=== PATIENT | male | born 1940 | race Two or more races ===

== ENCOUNTER 2020-02-04 09:18 | Day surgery (SDC) | payer OTHER ==
[2020-01-29 11:04] VITALS: BMI 31.7
[2020-02-04] MEDS ORDERED: OFLOXACIN 0.3% OPHTHALMIC SOLUTION 5 ML BOTTLE ONE (10:10)
[2020-02-04] MEDS ORDERED: CYCLOPENTOLATE HCL 1% OPHTH SOLN 2 ML BOTTLE ONE (10:10)
[2020-02-04] MEDS ORDERED: KETOROLAC TROMETHAMINE 0.5% EYE DROP 1 DROP DROPS ONE (10:11)
[2020-02-04] MEDS ORDERED: PHENYLEPHRINE 2.5% OPHTH SOLN 15 ML BOTTLE ONE (10:11)
[2020-02-04] MEDS ORDERED: TROPICAMIDE 1% OPHTH SOLN 15 ML BOTTLE ONE (10:11)
[2020-02-04] MEDS: KETOROLAC TROMETHAMINE 0.5% EYE DROP 1 DROP DROPS OD SCH ×5 (10:25→10:45)
[2020-02-04] MEDS: PHENYLEPHRINE 2.5% OPHTH SOLN 15 ML BOTTLE OD SCH ×5 (10:25→10:45)
[2020-02-04] MEDS: TROPICAMIDE 1% OPHTH SOLN 15 ML BOTTLE OD SCH ×5 (10:25→10:45)
[2020-02-04] MEDS: OFLOXACIN 0.3% OPHTHALMIC SOLUTION 5 ML BOTTLE OD SCH ×5 (10:25→10:45)
[2020-02-04] MEDS: CYCLOPENTOLATE HCL 1% OPHTH SOLN 2 ML BOTTLE OD SCH ×5 (10:25→10:45)
[2020-02-04] MEDS ORDERED: BACITRACIN/POLYMYXIN OPH OINT 3.5 GM TUBE ONE (11:32)
[2020-02-04] MEDS ORDERED: BETAXOLOL HCL 0.25% OPHTHALMIC 10 ML DROPSBTL ONE (11:32)
[2020-02-04] MEDS ORDERED: POVIDONE-IODINE 5% OPHTHALMIC PREP 30 ML SOLUTION ONE (11:32)
[2020-02-04] MEDS ORDERED: EPI-SHUGARCAINE (EPINEPHRINE 0.025% & LIDOCAINE-PF 0.75%) 4ML ONE (11:32)
[2020-02-04] MEDS ORDERED: NEO/POLYMYX B SULF/DEXAMETH OPHTHALMIC 5ML BOTTLE ONE (11:33)
[2020-02-04] MEDS ORDERED: MIDAZOLAM HCL 2 MG/2 ML SINGLE DOSE VIAL ONE (11:39)
[2020-02-04] MEDS ORDERED: ISOSULFAN BLUE 10 MG/ML VIAL SQ ONE (12:08)
[2020-02-04] MEDS ORDERED: ACETAMINOPHEN 325 MG TABLET (FP) PO PRN (13:00)
[2020-02-04 13:39] VITALS: TEMP 98.3
[2020-02-04 13:43] VITALS: BP 122/77; PULSE 48
--- NOTE | 2020-02-04 19:23 | OP ---
DATE OF OPERATION: 02/04/2020 PREOPERATIVE DIAGNOSIS: Cataract, right eye. POSTOPERATIVE DIAGNOSIS: Cataract, right eye. PROCEDURE: Cataract extraction via phacoemulsification with insertion of posterior chamber lens implant, right eye. SURGEON: Maikel Abraham MD. SLICING MACHINE OPERATOR: Sofie Jimenez MD. ANESTHESIA: Topical with sedation. ESTIMATED BLOOD LOSS: Less than 1 mL. COMPLICATIONS: None. SPECIMENS: None. PROCEDURE: The patient is identified in the holding area. After all risks, benefits, and alternatives were explained to the patient, informed consent was obtained. The right eye was marked with a marking pen. The patient then entered the operating room on an eye stretcher. After formal timeout was performed, topical tetracaine eyedrops were instilled onto the right eye. The right eye was then prepped and draped in the usual sterile fashion. Eyelid speculum was placed beneath the eyelids of the right eye. A supratemporal paracentesis incision was created using 15 degree blade. Topical preservative-free epinephrine and preservative-free lidocaine was then injected into the anterior chamber, air bubbles then into the anterior chamber. Trypan blue was then used to stain the anterior capsule. Then viscoelastic was used to evacuate all air bubble and excess Trypan blue from the eye. A 2.4-mm keratome blade was then used to make an infratemporal incision. A 360-degree continuous curvilinear capsulorrhexis was then created using bent cystotome and Utrata forceps. Hydrodissection was performed using balanced saline solution on the cannula. Phacoemulsification was then introduced, disassembled and removed the nucleus in its entirety. Irrigation/aspiration was then used to remove any remaining cortical material from the eye. The capsular bag was reformed using viscoelastic. An Daniele model SN683 with a power of 21.0 diopters, serial number [id number] was inspected and found to be defect free and injected into the capsular bag. Irrigation/aspiration was then used to remove any remaining viscoelastic from the eye including . The intraocular lens was rotated so that the axis of astigmatism on the optic matched the axis of astigmatism on the cornea, which was noted to be 10 degrees. Once the intraocular lens was rotated appropriately, all wounds were hydrated with balanced salt solution and noted to be watertight. There was a red reflex present. The anterior chamber was deep. The lens was perfectly centered in the capsular bag with the axis of astigmatism at 10 degrees, and the eye had adequate pressure. Topical antibiotic eyedrops and antibiotic ointment was then administered to the right eye. The eyelid speculum was then removed from the right eye. The right eye was shielded. The patient tolerated the procedure well and right the operating room in stable condition to follow up in the eye clinic the next morning at 10 o'clock. ADDENDUM: Before the right eye was prepped and draped in the usual sterile fashion, the patient was asked to sit up and look straight ahead, and the cardinal axes of astigmatism were marked using a Toric marking pen and a Toric marker. Then the patient was instructed to lay back down and the right eye again was prepped and draped in the usual sterile fashion. Then, following that step, the cornea was marked for the axis of astigmatism using a Toric dial and Toric marking pen; again, the axis of astigmatism was noted to be 10 degrees. MAIKEL ABRAHAM M.D. [id number]
== END 2020-02-04 14:05 | disposition home or self-care (01) ==
LOC: FASU 09:18
PROVIDERS: ATTEND Ophthalmology
PROC: 08RJ3JZ Replacement of Right Lens with Synthetic Substitute, Percutaneous Approach (ICD-10-PCS; principal; 2020-02-04 12:18)
DX: H26.9 Unspecified cataract (principal)

== ENCOUNTER 2020-02-18 09:14 | Day surgery (SDC) | payer OTHER ==
[2020-02-11 15:03] VITALS: BMI 31.7
[2020-02-18] MEDS ORDERED: CYCLOPENTOLATE HCL 1% OPHTH SOLN 2 ML BOTTLE ONE (09:26)
[2020-02-18] MEDS ORDERED: OFLOXACIN 0.3% OPHTHALMIC SOLUTION 5 ML BOTTLE ONE (09:27)
[2020-02-18] MEDS ORDERED: KETOROLAC TROMETHAMINE 0.5% EYE DROP 1 DROP DROPS ONE (09:27)
[2020-02-18] MEDS ORDERED: TROPICAMIDE 1% OPHTH SOLN 15 ML BOTTLE ONE (09:27)
[2020-02-18] MEDS ORDERED: PHENYLEPHRINE 2.5% OPHTH SOLN 15 ML BOTTLE ONE (09:27)
[2020-02-18] MEDS: TROPICAMIDE 1% OPHTH SOLN 15 ML BOTTLE OS SCH ×5 (09:30→09:50)
[2020-02-18] MEDS: OFLOXACIN 0.3% OPHTHALMIC SOLUTION 5 ML BOTTLE OS SCH ×5 (09:30→09:50)
[2020-02-18] MEDS: KETOROLAC TROMETHAMINE 0.5% EYE DROP 1 DROP DROPS OS SCH ×5 (09:30→09:50)
[2020-02-18] MEDS: PHENYLEPHRINE 2.5% OPHTH SOLN 15 ML BOTTLE OS SCH ×5 (09:30→09:50)
[2020-02-18] MEDS: CYCLOPENTOLATE HCL 1% OPHTH SOLN 2 ML BOTTLE OS SCH ×5 (09:30→09:50)
[2020-02-18] MEDS ORDERED: MIDAZOLAM HCL 2 MG/2 ML SINGLE DOSE VIAL ONE (09:46)
[2020-02-18] MEDS ORDERED: TRYPAN BLUE 0.5 ML DISP.SYRIN ONE (10:31)
[2020-02-18] MEDS ORDERED: ACETAMINOPHEN 325 MG TABLET (FP) PO PRN (11:07)
[2020-02-18 11:20] VITALS: TEMP 97.4
[2020-02-18 12:54] VITALS: BP 123/68; PULSE 59
--- NOTE | 2020-02-18 18:43 | OP ---
DATE OF OPERATION: 02/18/2020 PREOPERATIVE DIAGNOSIS: Cataract, left eye. POSTOPERATIVE DIAGNOSIS: Cataract, left eye. PROCEDURE: Cataract extraction via phacoemulsification with insertion of posterior chamber lens implant, left eye, Toric lens. SURGEON: Maikel Abraham MD. SNOWBOARD INSTRUCTOR: Sofie Jimenez MD. ANESTHESIA: Topical with sedation. ESTIMATED BLOOD LOSS: Less than 1 mL. COMPLICATIONS: None. SPECIMENS: None. PROCEDURE: The patient is identified in the holding area. After all risks, benefits, and alternatives were explained to the patient, informed consent was obtained. The left eye was marked with a marking pen. The patient then entered the operating room on an eye stretcher. After formal timeout was performed, topical tetracaine eyedrops were instilled onto the left eye. The patient was then instructed to sit up and look straight ahead and the cardinal axis of astigmatism were marked using a Toric marking pen, and a Toric marker. The patient was then instructed to lay back down, and the left eye was prepped and draped in the usual sterile fashion. Eyelid speculum was placed beneath the eyelids of the left eye. It was noted that the cataract was very dense, and so Trypan blue was determined to be used. Then, the axis of astigmatism was marked on the cornea using a Toric dial and a Toric marking pen; it was noted to be 170 degrees. Then an infratemporal paracentesis incision was created using 15-degree blade. Topical preservative-free epinephrine and preservative-free lidocaine was then injected to the anterior chamber. Air bubbles then injected into the anterior chamber. Trypan blue was then injected below the air bubbles, staining anterior capsule. BSS was then used to irrigate all the excess Trypan blue and air bubble from the eye. Viscoelastic was then used to fill the anterior chamber. A 2.4-mm keratome blade was then used to make an infratemporal incision. A 360-degree continuous curvilinear capsulorrhexis was then created using bent cystotome and Utrata forceps. Hydrodissection was performed using balanced saline solution on the cannula. Phacoemulsification was then introduced, disassembled and removed the nucleus in its entirety. Irrigation/aspiration was then used to remove any remaining cortical material from the eye. The capsular bag was reformed using viscoelastic. An Daniele model SN683 with a power of 21.0 diopters, serial number [id number] was inspected and found to be defect free and injected into the capsular bag. Irrigation/aspiration was then used to remove any remaining viscoelastic including posterior . The intraocular lens was rotated so that the axis of astigmatism on the optic matched the axis of astigmatism on the cornea, which was noted to be 170 degrees. All wounds were hydrated with balanced saline solution and noted to be watertight. The anterior chamber was deep. There was red reflex present. The lens was perfectly centered in the capsular bag with the axis of astigmatism at 170 degrees, and the eye had adequate pressure. Then topical antibiotic eyedrops and antibiotic ointment was then administered to the left eye. The eyelid speculum was then removed from the left eye. The left eye was shielded. The patient tolerated the procedure well and left the operating room in stable condition to follow up in the eye clinic tomorrow morning at 10 o'clock. MAIKEL ABRAHAM M.D. [id number]
== END 2020-02-18 11:55 | disposition home or self-care (01) ==
LOC: FASU 09:14
PROVIDERS: ATTEND Ophthalmology
PROC: 08RK3JZ Replacement of Left Lens with Synthetic Substitute, Percutaneous Approach (ICD-10-PCS; principal; 2020-02-18 10:37)
DX: H26.9 Unspecified cataract (principal)